=== PATIENT | male | born 1960 | race Caucasian/White ===

== ENCOUNTER 2016-10-28 12:06 | Emergency (ER) | payer SELFPAY ==
[~2016-10-28] VITALS: Ht 177.8 cm; Wt 95.3 kg
[2016-10-28] MEDS ORDERED: PANTOPRAZOLE SO40 MG PO (12:14)
[2016-10-28] MEDS ORDERED: 'PARAFON FORTE500 M1 PO (12:53)
[2016-10-28] MEDS ORDERED: NAPROSYN500 MG PO (12:53)
== END 2016-10-28 13:55 | disposition home or self-care (01) ==
LOC: ED 12:06
DX: M79.621 Pain in right upper arm (principal); M54.10 Radiculopathy, site unspecified; M54.2 Cervicalgia; R03.0 Elevated blood-pressure reading, without diagnosis of hypertension; Z79.899 Other long term (current) drug therapy